=== PATIENT | male | born 1980 | race Asian ===

== ENCOUNTER 2020-12-13 23:26 | Inpatient (IN) ==
[2020-12-13] MEDS ORDERED: ACETAMINOPHEN 500 MG TAB PO STA (23:49)
[2020-12-13] MEDS ORDERED: DEXAMETHASONE SOD INJ 10 MG/ML VIAL PO ONE (23:49)
[2020-12-14 00:33] LABS: Basophils # (auto) 0.01 K/uL (0-0.2); Basophils % (auto) 0.2 %; Eosinophils # (auto) 0.01 K/uL (0-0.5); Eosinophils % (auto) 0.2 %; Hematocrit (blood only) 44.4 % (42-52); Hemoglobin 15.9 g/dL (14.0-18.0); Immature Granulocytes # (auto) 0.02 K/uL (0.00-0.02); Immature Granulocytes % (auto) 0.3 %; Lymphocytes # (auto) 1.04 K/uL (1.2-3.4); Lymphocytes % (auto) 16.8 %; Mean Corpuscular Hemoglobin 28.4 pg (25-34); Mean Corpuscular Hgb Conc 35.8 g/dL (32-36); Mean Corpuscular Volume 79.4 fL (80-100); Mean Platelet Volume 9.8 fL (7.4-10.4); Monocytes # (auto) 0.36 K/uL (0.11-0.59); Monocytes % (auto) 5.8 %; Neutrophils # (auto) 4.76 K/uL (1.4-6.5); Neutrophils % (auto) 76.7 %; Platelet Count 145 K/uL (130-400); RDW Coefficient of Variation 11.9 % (11.5-14.5); RDW Standard Deviation 34.3 fL (36.4-46.3); Red Blood Count 5.59 M/uL (4.7-6.1)
[2020-12-14 00:54] LABS: Albumin Globulin Ratio 0.7 (0.9-2); Albumin Level 2.9 gm/dl (3.4-5.0); BUN Creatinine Ratio 12.7 (10-20); Bilirubin,Total 0.8 mg/dl (0.2-1); Calcium 8.4 mg/dl (8.5-10.1); Creatinine Clr Calc Pharmacy 129.4 ml/min; Est GFR (African American) 123.1; Est GFR (Non-African American) 106.2; Globulin 3.9 gm/dl (2.5-4.0); Total Protein 6.8 gm/dl (6.4-8.2)
[2020-12-14 01:34] LABS: Partial Thromboplastin Ratio 1.2; Prothrombin Time 10.2 Seconds (9.0-12.0)
--- NOTE | 2020-12-14 03:01 | Emergency Department Note ---
History of Present Illness General Chief complaint: Flu Like Symptoms Stated complaint: COV + 3/10, HTN, SOB, LOW PULSE OX Time Seen by Provider: 12/13/20 23:35 History of Present Illness Maximum Pain Intensity: 6 This 40-year-old with known Covid presents to the ER complaining of worsening shortness of breath Location: Chest Quality: Hard to breathe Severity: Moderate Duration: Past few days Timing: Few days ago Context: Patient was concerned and came in Modifying factors: better with rest; worse with activity patient states his home pulse ox was in the 80s. He was concerned and came in. Patient did not take anything for his fever. He was concerned it might affect his body. Patient denies chest pain, abdominal pain, vomiting, diarrhea. He is requesting admission. Home Medications Medication Instructions Recorded Confirmed Type metformin 1,000 mg PO QPM 12/11/20 12/14/20 History metformin 500 mg PO QDL 12/11/20 12/14/20 History rosuvastatin 5 mg PO HS 12/14/20 12/14/20 History Allergies Allergy/AdvReac Type Severity Reaction Status Date / Time No Known Allergies Allergy Verified 12/14/20 00:15 Past Med/Surg History Medical History Dyslipidemia Type 2 diabetes mellitus Surgical History No pertinent past surgical history Family History Father Myocardial infarction Other Ovarian cancer Prostate cancer Denies family history of Breast cancer Colorectal cancer Social History Smoking Status: Never smoker Hx Alcohol Use: Yes Hx Substance Use: No marital status: Feels Safe at Home: Yes Review of Systems A total of 10 systems reviewed and were otherwise negative Physical Exam Vital Signs Vital Signs - 24 hr 12/13/20 23:32 12/14/20 00:00 12/14/20 00:29 Temperature 38.6 C H Temperature Source Temporal Artery Scan Pulse Rate 111 H Pulse Rate [Right Finger] 100 H 98 H Respiratory Rate 24 20 20 Respiratory Rate [Exercises] 20 Respiratory Effort / Characteristics Non-Labored Spontaneous Respiratory Depth Normal Blood Pressure 133/90 Blood Pressure [Left Arm] 126/90 114/71 Blood Pressure Mean 104 Blood Pressure Mean [Left Arm] 102 85 Pulse Oximetry 93 93 93 Pulse Oximetry [Exercises] 93 Oxygen Delivery Method Room Air Room Air Room Air Sepsis Recent Fever Within 48 Hours Yes Sepsis New/Unexplained Change in Mental Status N/A Sepsis Action Taken by Nursing Physician Notified 12/14/20 01:15 Temperature 36.8 C Temperature Source Oral Pulse Rate Pulse Rate [Right Finger] 90 Respiratory Rate 20 Respiratory Rate [Exercises] Respiratory Effort / Characteristics Respiratory Depth Blood Pressure Blood Pressure [Left Arm] 107/65 Blood Pressure Mean Blood Pressure Mean [Left Arm] 79 Pulse Oximetry 92 Pulse Oximetry [Exercises] Oxygen Delivery Method Sepsis Recent Fever Within 48 Hours Sepsis New/Unexplained Change in Mental Status Sepsis Action Taken by Nursing VITALS: Vitals are noted on the nurse's note and reviewed by myself. Vital signs pulse ox 92%. GENERAL: Pleasant male mildly ill-appearing SKIN: The skin was without rashes, erythema, edema, or bruising. There is no tenting of the skin. Capillary reflex less than 2 seconds. HEAD: Normocephalic atraumatic. EARS: External auditory canals clear, tympanic membranes pearly reyes without erythema or effusion bilaterally. EYES: Pupils equal round and reactive to light and accommodation. Conjunctivae without injection, sclerae without icterus. Extraocular movements intact. NOSE: Patent, turbinates without inflammation or discharge. No sinus tenderness. MOUTH: Mucous membranes mildly dry. Pharynx without erythema or exudate. Uvula midline. Airway patent. Tongue does not deviate. NECK: Supple without nuchal rigidity. No lymphadenopathy. No thyromegaly. Cervical spine is nontender. No JVD. HEART: Regular rate and rhythm LUNGS: Clear to auscultation bilaterally without wheezes, rales or rhonchi. No retractions or accessory muscle use. ABDOMEN: Positive bowel sounds x 4. Normal tympanic percussion. Soft, nontender, without masses or organomegaly. Muhammad sign negative. No guarding or rebound tenderness. No CVA tenderness MUSCULOSKELETAL: No muscle atrophy, erythema, or edema noted. NEURO: Patient was alert and oriented to person place and time. Normal sensation to light and sharp touch. No focal neurological deficits. Course Administered Medications Discontinued Medications Acetaminophen (Acetaminophen 500 Mg Tab) 1,000 mg PO NOW STA Stop: 12/13/20 23:50 Last Admin: 12/13/20 23:55 Dose: 1,000 mg Documented by: [id number] Dexamethasone (Dexamethasone Sod Inj 10 Mg/Ml Vial) 6 mg PO NOW ONE Stop: 12/13/20 23:50 Last Admin: 12/13/20 23:55 Dose: 6 mg Documented by: [id number] Medical Decision Making Medical Records Attestation: I reviewed the patient's medical records. Home Medications Current Medication List: was personally reviewed by me Laboratory Data Attestation: I reviewed the patient's lab results. Result diagrams: 12/14/20 00:16 12/14/20 01:10 Lab Results 12/14/20 12/14/20 12/14/20 Range/Units 00:16 00:16 00:16 WBC 6.20 (4.8-10.8) K/uL RBC 5.59 (4.7-6.1) M/uL Hgb 15.9 (14.0-18.0) g/dL Hct 44.4 (42-52) % MCV 79.4 L (80-100) fL MCH 28.4 (25-34) pg MCHC 35.8 (32-36) g/dL RDW Std Deviation 34.3 L (36.4-46.3) fL RDW Coeff of Jerome 11.9 (11.5-14.5) % Plt Count 145 (130-400) K/uL MPV 9.8 (7.4-10.4) fL Immature Gran % (Auto) 0.3 % Neut % (Auto) 76.7 % Lymph % (Auto) 16.8 % [place] % (Auto) 5.8 % Eos % (Auto) 0.2 % Baso % (Auto) 0.2 % Neut # (Auto) 4.76 (1.4-6.5) K/uL Lymph # (Auto) 1.04 L (1.2-3.4) K/uL [place] # (Auto) 0.36 (0.11-0.59) K/uL Eos # (Auto) 0.01 (0-0.5) K/uL Baso # (Auto) 0.01 (0-0.2) K/uL Immature Gran # (Auto) 0.02 (0.00-0.02) K/uL PT Cancelled INR Cancelled APTT Cancelled PTT Ratio Cancelled Sodium 130 L (136-145) mmol/L Potassium (3.5-5.1) mmol/L Chloride 101 (98-107) mmol/L Carbon Dioxide 22 (21-32) mmol/L Anion Gap 7.0 (3-11) BUN 11 (7-18) mg/dl Creatinine 0.89 (0.6-1.4) mg/dl Est Cr Clr Drug Dosing 129.4 ml/min Est GFR ( Amer) 123.1 Est GFR (Non-Af Amer) 106.2 BUN/Creatinine Ratio 12.7 (10-20) Glucose 235 H (70-99) mg/dl Calcium 8.4 L (8.5-10.1) mg/dl Total Bilirubin 0.8 (0.2-1) mg/dl AST (15-37) U/L ALT 63 (12-78) U/L Alkaline Phosphatase 97 (45-117) U/L Total Protein 6.8 (6.4-8.2) gm/dl Albumin 2.9 L (3.4-5.0) gm/dl Globulin 3.9 (2.5-4.0) gm/dl Albumin/Globulin Ratio 0.7 L (0.9-2) Specimen Hemolysis 12/14/20 12/14/20 Range/Units 01:10 01:10 WBC (4.8-10.8) K/uL RBC (4.7-6.1) M/uL Hgb (14.0-18.0) g/dL Hct (42-52) % MCV (80-100) fL MCH (25-34) pg MCHC (32-36) g/dL RDW Std Deviation (36.4-46.3) fL RDW Coeff of Jerome (11.5-14.5) % Plt Count (130-400) K/uL MPV (7.4-10.4) fL Immature Gran % (Auto) % Neut % (Auto) % Lymph % (Auto) % [place] % (Auto) % Eos % (Auto) % Baso % (Auto) % Neut # (Auto) (1.4-6.5) K/uL Lymph # (Auto) (1.2-3.4) K/uL [place] # (Auto) (0.11-0.59) K/uL Eos # (Auto) (0-0.5) K/uL Baso # (Auto) (0-0.2) K/uL Immature Gran # (Auto) (0.00-0.02) K/uL PT 10.2 INR 1.0 APTT 31.0 PTT Ratio 1.2 Sodium (136-145) mmol/L Potassium 4.0 (3.5-5.1) mmol/L Chloride (98-107) mmol/L Carbon Dioxide (21-32) mmol/L Anion Gap (3-11) BUN (7-18) mg/dl Creatinine (0.6-1.4) mg/dl Est Cr Clr Drug Dosing ml/min Est GFR ( Amer) Est GFR (Non-Af Amer) BUN/Creatinine Ratio (10-20) Glucose (70-99) mg/dl Calcium (8.5-10.1) mg/dl Total Bilirubin (0.2-1) mg/dl AST 57 H (15-37) U/L ALT (12-78) U/L Alkaline Phosphatase (45-117) U/L Total Protein (6.4-8.2) gm/dl Albumin (3.4-5.0) gm/dl Globulin (2.5-4.0) gm/dl Albumin/Globulin Ratio (0.9-2) Specimen Hemolysis Imaging Data Attestation: I personally reviewed and interpreted this imaging study as follows: MDM Narrative Prior records/ancillary studies reviewed. Triage Nursing notes reviewed. The patient's history was concerning for fever. Differential diagnosis: Etiologies such as viral syndrome, otitis, pharyngitis, pneumonia, influenza, meningitis, urinary tract infection, sepsis, bacteremia, as well as others were entertained. Physical examination: As above ER treatment provided: An order was placed for continuous cardiac monitoring. The monitor shows a rate of 60-1 20 with a sinus rhythm. Tylenol, Decadron, IV fluids On reassessment the patient felt better. Diagnostics interpreted by me: The labs revealed improved LFTs Imaging studies: Chest x-ray with worsening lung opacities concerning for Covid my interpretation Consultation: A consultation was placed with Dr. Walsh. The case was discussed and diagnostics were reviewed. The patient was evaluated in the ER for further treatment. This appears to be consistent with Covid pneumonia. Patient symptoms are getting worse. He is requesting admission. Medicine was consulted. He was turned Decadron. He will be evaluated for admission. By the evaluation outlined above emergent etiologies such as otitis, pharyngitis, meningitis, urinary tract infection, sepsis, bacteremia, as well as others were deemed relatively unlikely. The pt informed about the findings as listed above. All questions were answered and pleased with the treatment. The chart was completed utilizing [employer] Speech voice recognition software. Grammatical errors, random word insertions, pronoun errors, and incomplete sentences are an occassional consequence of this system due to software limitations, ambient noise, and hardware issues. Any formal questions or concerns about the content, text, or information contained within the body of this dictation should be directly addressed to the physician critical care physician assistant for clarification. Impression & Plan COVID-19 Discharge Plan Visit Data Chief Complaint: Flu Like Symptoms Stated Complaint: COV + 3/10, HTN, SOB, LOW PULSE OX ED Provider: Leonard Low ED Midlevel Provider: Cierra Ansari Discharge Problem: COVID-19 Patient Disposition: Admitted As Inpatient Condition: Good Forms Stand Alone Forms: My [facility] [employer] Prescriptions Prescriptions: No Action metformin 500 mg tablet 1,000 mg PO QPM RF: 0 metformin 500 mg tablet 500 mg PO QDL RF: 0 rosuvastatin 5 mg tablet 5 mg PO HS RF: 0 Referrals Referrals: Desiree Stephens MD [Primary Care Provider] -
--- NOTE | 2020-12-14 03:11 | History & Physical Report ---
Date of Service December 14, 2020 Assessment & Plan (1) COVID-19: The patient presents to the emergency department with persistent symptoms of generalized fatigue, weakness, lethargy and productive cough. His symptoms initially began on 12/13/2020. Pulse ox in the emergency department was steadily recorded at 93% on room air. Dexamethasone 6 mg IV every morning Zinc sulfate 220 mg p.o. every morning Vitamin D 2000 international units p.o. every morning Guaifenesin extended release 60 mg p.o. twice daily Ventolin HFA 2 puffs every 2 hours as needed Azithromycin 500 mg IV daily Present on Admission?: Yes (2) Hypoxia: See above Present on Admission?: Yes (3) Dyslipidemia: Continue rosuvastatin Present on Admission?: Yes (4) Type 2 diabetes mellitus: Hold Metformin Patient Accu-Cheks before meals and at bedtime with NovoLog coverage per scale Present on Admission?: Yes History of Present Illness Chief Complaint: The patient presents to the emergency department with complaint of persistent shortness of breath, dyspnea on exertion and generalized fatigue after initial development of symptoms of COVID-19 infection on December 03. Primary Care Provider: Desiree Stephens MD The patient is a 40-year-old male with a past medical history including diabetes mellitus and hyperlipidemia who was initially seen in the emergency department on 12/11/2020 for the above symptoms. He reports that since that time he has developed a fever, with temperature in the ED recorded to 101.5 F, and feels he needs to be admitted to the hospital. He did have loss of taste and smell that has returned a few days ago, but still has no appetite. Allergies Allergy/AdvReac Type Severity Reaction Status Date / Time No Known Allergies Allergy Verified 12/14/20 00:15 Home Medications Medication Instructions Recorded Confirmed Type metformin 1,000 mg PO QPM 12/11/20 12/14/20 History metformin 500 mg PO QDL 12/11/20 12/14/20 History rosuvastatin 5 mg PO HS 12/14/20 12/14/20 History Past Med/Surg History Medical History Dyslipidemia Type 2 diabetes mellitus Surgical History No pertinent past surgical history Family History Father Myocardial infarction Other Ovarian cancer Prostate cancer Denies family history of Breast cancer Colorectal cancer Social History Smoking Status: Never smoker Hx Alcohol Use: No Hx Substance Use: No Preferred Language: [place]an Communication Ability: Effective Beliefs That Will Affect Care: None marital status: Current Living Situation: Spouse Other Information That Helps Us Care for You: No Feels Safe at Home: Yes Safety Concerns: Feels Safe At This Time Assistive Devices: None Review of Systems Review of Systems: The patient denies chest pain, palpitations, cough, lower extremity swelling, sore throat, fevers, chills, sweats, nausea, vomiting, diarrhea , constipation, abdominal pain, pelvic pain, blood in urine or stool, dysuria, urinary frequency or urgency, lightheadedness, dizziness, headache, memory loss, loss of consciousness, rash, abnormal bruising or bleeding, imbalance, focal weakness, numbness or tingling in arms or legs, generalized arthralgias or myalgias, back or neck pain, or night sweats. The review of systems is otherwise negative other than for that already noted above, and at least 10 systems have been reviewed. Physical Exam Physical Exam: The patient is awake, alert and oriented 3, well developed and well nourished, normocephalic and atraumatic, lying in bed and in no acute distress. HEENT--PERRL, EOMI, mucous membranes and oropharynx normal. Neck--supple. No JVD. No bruits. Thyroid normal, trachea midline, no adenopathy. Heart--normal S1 and S2. No murmurs, rubs or gallops. Lungs--clear bilaterally, no respiratory distress, no accessory muscle use. Abdomen--normal bowel sounds and soft. Nontender. Nondistended, no hernias or masses, no organomegaly. Extremities--no cyanosis or clubbing. No edema. Dermatologic--normal skin turgor, normal color, no abnormal lymph nodes, no rash. Neurologic--cranial nerves II through XII grossly intact. Rheumatologic--normal range of motion. Psychiatric--normal affect. Results & Data Results & Data ([facility]) Vital Signs (Past 12 Hours) Vital Signs Temp Pulse Pulse Resp Resp BP BP 12/14/20 01:15 98.2 F 90 20 107/65 12/14/20 00:29 98 H 20 114/71 12/14/20 00:00 100 H 20 20 126/90 12/13/20 23:32 101.5 F H 111 H 24 133/90 Pulse Ox Pulse Ox 12/14/20 01:15 92 12/14/20 00:29 93 12/14/20 00:00 93 93 12/13/20 23:32 93 Laboratory Results Laboratory Results WBC 6.20 K/uL (4.8-10.8) 12/14/20 00:16 RBC 5.59 M/uL (4.7-6.1) 12/14/20 00:16 Hgb 15.9 g/dL (14.0-18.0) 12/14/20 00:16 Hct 44.4 % (42-52) 12/14/20 00:16 MCV 79.4 fL (80-100) L 12/14/20 00:16 MCH 28.4 pg (25-34) 12/14/20 00:16 MCHC 35.8 g/dL (32-36) 12/14/20 00:16 RDW Std Deviation 34.3 fL (36.4-46.3) L 12/14/20 00:16 RDW Coeff of Jerome 11.9 % (11.5-14.5) 12/14/20 00:16 Plt Count 145 K/uL (130-400) 12/14/20 00:16 MPV 9.8 fL (7.4-10.4) 12/14/20 00:16 Immature Gran % (Auto) 0.3 % 12/14/20 00:16 Neut % (Auto) 76.7 % 12/14/20 00:16 Lymph % (Auto) 16.8 % 12/14/20 00:16 [place] % (Auto) 5.8 % 12/14/20 00:16 Eos % (Auto) 0.2 % 12/14/20 00:16 Baso % (Auto) 0.2 % 12/14/20 00:16 Neut # (Auto) 4.76 K/uL (1.4-6.5) 12/14/20 00:16 Lymph # (Auto) 1.04 K/uL (1.2-3.4) L 12/14/20 00:16 [place] # (Auto) 0.36 K/uL (0.11-0.59) 12/14/20 00:16 Eos # (Auto) 0.01 K/uL (0-0.5) 12/14/20 00:16 Baso # (Auto) 0.01 K/uL (0-0.2) 12/14/20 00:16 Immature Gran # (Auto) 0.02 K/uL (0.00-0.02) 12/14/20 00:16 PT 10.2 Seconds (9.0-12.0) 12/14/20 01:10 INR 1.0 (0.9-1.1) 12/14/20 01:10 APTT 31.0 Seconds (21.0-31.0) 12/14/20 01:10 PTT Ratio 1.2 12/14/20 01:10 Sodium 130 mmol/L (136-145) L 12/14/20 00:16 Potassium 4.0 mmol/L (3.5-5.1) 12/14/20 01:10 Chloride 101 mmol/L (98-107) 12/14/20 00:16 Carbon Dioxide 22 mmol/L (21-32) 12/14/20 00:16 Anion Gap 7.0 (3-11) 12/14/20 00:16 BUN 11 mg/dl (7-18) 12/14/20 00:16 Creatinine 0.89 mg/dl (0.6-1.4) 12/14/20 00:16 Est Cr Clr Drug Dosing 129.4 ml/min 12/14/20 00:16 Est GFR ( Amer) 123.1 12/14/20 00:16 Est GFR (Non-Af Amer) 106.2 12/14/20 00:16 BUN/Creatinine Ratio 12.7 (10-20) 12/14/20 00:16 Glucose 235 mg/dl (70-99) H 12/14/20 00:16 POC Glucose 330 mg/dl (70-99) H* 12/14/20 04:09 Calcium 8.4 mg/dl (8.5-10.1) L 12/14/20 00:16 Total Bilirubin 0.8 mg/dl (0.2-1) 12/14/20 00:16 AST 57 U/L (15-37) H 12/14/20 01:10 ALT 63 U/L (12-78) 12/14/20 00:16 Alkaline Phosphatase 97 U/L (45-117) 12/14/20 00:16 Total Protein 6.8 gm/dl (6.4-8.2) 12/14/20 00:16 Albumin 2.9 gm/dl (3.4-5.0) L 12/14/20 00:16 Globulin 3.9 gm/dl (2.5-4.0) 12/14/20 00:16 Albumin/Globulin Ratio 0.7 (0.9-2) L 12/14/20 00:16 Specimen Hemolysis 12/14/20 01:10 Code Status & VTE Plan Code Status Full code VTE Prophylaxis Plan VTE Prophylaxis will be ordered: Yes PG Care Time/CCT Total # of Minutes Spent Total Time Spent with Patient: Total time spent is greater than 50% in coordination of care (as documented) at patient's floor/unit and/or counseling patient: Coding Level of Care Code 38239 Initial Inpt Care Lvl 2 Diagnoses COVID-19 U07.1 Hypoxia R09.02 Dyslipidemia E78.5 Type 2 diabetes mellitus E11.9
[2020-12-14] MEDS ORDERED: ALBUTEROL HFA 8 GM INHALER INH PRN (03:44)
[2020-12-14] MEDS ORDERED: ONDANSETRON INJ 2 MG/ML 2 ML VIAL IV PRN (03:44)
[2020-12-14] MEDS ORDERED: ACETAMINOPHEN 325 MG TAB PO PRN (03:44)
[2020-12-14] MEDS ORDERED: GLUCAGON FOR INJ 1 MG VIAL SQ PRN (03:44)
[2020-12-14] MEDS ORDERED: CARBOHYDRATES FOR HYPOGLYCEMIA PO PRN (03:44)
[2020-12-14] MEDS ORDERED: GLUCOSE 10 TABS/TUBE PO PRN (03:44)
[2020-12-14] MEDS ORDERED: DEXTROSE 50% 50 ML SYRINGE IV PRN (03:44)
[2020-12-14] MEDS ORDERED: GLUCOSE 40% GEL 15 GM TUBE PO PRN (03:44)
[2020-12-14] MEDS ORDERED: AZITHROMYCIN 500 MG in DEXTROSE 5% 250 ML IV ONE (04:00)
[2020-12-14] MEDS: INSULIN ASPART 100 UNITS/ML 3 ML PEN SC SCH ×3 (04:25→12:22)
[2020-12-14] MEDS ORDERED: CHOLECALCIFEROL 1,000 UNITS 25 MCG TAB PO SCH (09:00)
[2020-12-14] MEDS ORDERED: guaiFENesin 600 MG TABCR PO SCH (09:00)
[2020-12-14] MEDS ORDERED: dexAMETHasone 6 MG in SYRINGE 0 ML IV SCH (09:00)
[2020-12-14] MEDS ORDERED: ZINC SULFATE 220 MG CAPSULE PO SCH (09:00)
--- NOTE | 2020-12-14 11:58 | XRay Report ---
SINGLE VIEW CHEST CLINICAL HISTORY: Dyspnea. Covid. FINDINGS: An AP, portable, upright chest radiograph is compared to study dated 12/11/2020 and correlat ed with chest CT dated 12/12/2020. The cardiomediastinal silhouette is unremarkable. There is multifoc al patchy airspace consolidation seen in both lungs, increasingly confluent in the right lung as comp ared to previous. No large pleural effusion or pneumothorax is seen. The bony thorax is grossly intac t. IMPRESSION: There is multifocal airspace consolidation as above consistent with the reported history of a viral pneumonia. This is increasingly confluent in the right lung as compared to previous. ACT 112: Negative or not required by law. Electronically signed by: Polo Emery M.D. 12/14/2020 11:56 AM
--- NOTE | 2020-12-14 14:56 | Discharge Summary ---
Date of Service December 14, 2020 Admission HPI Per Admitting Provider The patient is a 40-year-old male with a past medical history including diabetes mellitus and hyperlipidemia who was initially seen in the emergency department on 12/11/2020 for the above symptoms. He reports that since that time he has developed a fever, with temperature in the ED recorded to 101.5 F, and feels he needs to be admitted to the hospital. He did have loss of taste and smell that has returned a few days ago, but still has no appetite. Principal Diagnosis Covid-19 pneumonia Discharge Exam Constitutional WD/WN, vitals as above Eyes EOM intact bilaterally; no conjunctival abnormality ENMT external ear and nose normal, oropharynx normal Neck trachea midline, no thyromegaly normal visual inspection Respiratory normal respiratory effort, lungs clear to auscultation no respiratory distress Cardiovascular RRR, no murmur, no edema Gastrointestinal (Abdomen) Inspection/Auscultation: abdomen normal to inspection; abdomen not distended Musculoskeletal no cyanosis or clubbing, extremities motor strength 5/5 Skin no rashes, warm and dry Neurologic moves all extremities and awake Psychiatric Orientation: alert, oriented to person and cooperative Discharge Data Allergies Allergy/AdvReac Type Severity Reaction Status Date / Time No Known Allergies Allergy Verified 12/14/20 00:15 Consultations 12/14/20 00:04 ED Decision to Admit Stat Hospital Course (1) COVID-19: The patient presents to the emergency department with persistent symptoms of generalized fatigue, weakness, lethargy and productive cough. His symptoms initially began on 12/03/2020. - Pulse ox in the emergency department was steadily recorded at 93% on room air. - On discharge, he was 94% to 96% on room air. - Discharged with Tessalon Perles PRN for cough. - Of note, dexamethasone was started, but Recovery Trial indicates harm for patients who do not have severe Covid. Given his pulse ox was steadily 93% or more on room air, he does not meet severe Covid cut-off and thus would *not* benefit from steroids. Additionally, given his diabetes, I think he would potentially have even greater harm from them from poor glycemic control while on them. Discharged without steroids. (2) Type 2 diabetes mellitus: Held Metformin while inpatient. - Return to normal home meds on discharge. (3) Dyslipidemia: - Continue rosuvastatin Total Time Total Time Spent Total Time Spent (In Minutes): 35 Discharge Plan Discharge Items Patient Disposition: Home - Self-Care Reason For Visit: COVID-19 INFECTION WITH HYPOXIA Discharge Diagnosis: Covid-19 infection Condition on Discharge: Good Activity: Resume your previous activity Non-emergency contact: Primary Care Provider Call non-emergency contact if: your symptoms worsen Follow-up/Referrals: Desiree Stephens MD [Primary Care Provider] - Diet: Carb Consistent or DM2 Addtl Attending Provider Instructions: Mr. Larry, You were admitted to the hospital with Covid-19 pneumonia. Your home pulse oximeter showed low oxygen levels, but the ones in the hospital overall showed good oxygen levels in the 94-95% range. This is considered normal, and you do not need home oxygen for this. Otherwise, the Covid-19 virus causes loss of appetite, nausea, diarrhea, weakness, and general tiredness. You are unfortunately experiencing all of these. Most people start to feel better within a week or two. Some feel better faster, and some others continue to have symptoms quite a while after their infection. Unfortunately, we don't know why some people experience shorter or longer symptoms at this time. Please continue to isolate at home until December 17. At that time, you should not be contagious as your symptoms first began on December 03 from what the admitting provider reported. Please follow up with Dr. Stephens this week or next via a tele-health visit to see how you are doing. Pending Studies at Discharge: No Stand-Alone Forms: My [facility] Results Scorecard, Smoking Cessation Medications and DC Order Prescriptions: New benzonatate [Tessalon Perles] 100 mg capsule 100 mg PO TID PRN (Reason: cough) Qty: 20 RF: 0 Continued metformin 500 mg tablet 1,000 mg PO QPM RF: 0 metformin 500 mg tablet 500 mg PO QDL RF: 0 rosuvastatin 5 mg tablet 5 mg PO HS RF: 0 Discharge Orders: Discharge Order (Routine); Ordered 12/14/20 Ordered By: Osmar Mei Admission Data Admit Date/Time: 12/14/20 03:10 Attending Provider: Osmar Mei Admit Provider: Luís Lin Primary Care Provider: Desiree Stephens Other Providers: Osmar Mei Other Interventions: Discharge Summary Assessment (RN) Last Done: 12/14/20 14:44 Coding Level of Care Code D/C Day Management >30 mins Diagnoses COVID-19 U07.1 Type 2 diabetes mellitus E11.9 Dyslipidemia E78.5
[2020-12-14] MEDS ORDERED: ROSUVASTATIN CALCIUM 5 MG TAB PO SCH (21:00)
[2020-12-15] MEDS ORDERED: AZITHROMYCIN 500 MG in DEXTROSE 5% 250 ML IV SCH (06:00)
[2020-12-15 06:02] LABS: Estimated Average Glucose 280 mg/dl; Hemoglobin A1C 11.4 % (4.5-5.6)
== END 2020-12-14 16:21 | disposition home or self-care (01) | DRG 177 ==
LOC: ED 23:26 → 2W 12-14 03:10 → SUATTDRO 12-14 03:10 → 2W 12-14 03:25